=== PATIENT | male | born 1935 | race Caucasian/White ===

== ENCOUNTER 2018-08-03 19:06 | Emergency (ER) | payer MEDICARE ==
[~2018-08-03] VITALS: Ht 167.6 cm; Wt 70.0 kg
[2018-08-03 19:22] VITALS: BP 167/81
[2018-08-03] MEDS ORDERED: SODIUM CHLORIDE FLUSH 10ML SYR IVF ONE (19:30)
--- NOTE | 2018-08-03 19:30 | NUR ---
PT PLACED ON BP CUFF, PULSE OXSelin BRYAN AT BS. WARM BLANKET PROVIDED, CALL LIGHT WITHIN REACH.
[2018-08-03 19:40] LABS: ALBUMIN 3.9 g/dL (3.4-5.0); ANION GAP 6 mmol/L (5-15); CALCIUM 9.5 mg/dL (8.5-10.1); CHLORIDE 103 mmol/L (98-107); CREATININE 0.99 mg/dL (0.7-1.3)
[2018-08-03 19:42] LABS: BASOPHILS # (AUTO) 0.02 x10^3/uL (0-0.1); BASOPHILS % (AUTO) 0 % (0-1); EOSINOPHILS # (AUTO) 0.29 x10^3/uL (0-0.4); EOSINOPHILS % (AUTO) 6 % (1-7); LYMPHOCYTES # (AUTO) 1.36 x10^3/uL (1-3.4); LYMPHOCYTES % (AUTO) 27 % (22-44); MD NO; MEAN CORPUSCULAR HGB CONC 33.3 g/dL (33.2-36.2); MONOCYTES % (AUTO) 10 % (2-9); NEUTROPHILS % (AUTO) 56 % (42-75); PLATELET COUNT 185 x10^3/uL (130-400); RED BLOOD COUNT 4.44 x10^6/uL (4.38-5.82); RED CELL DISTRIBUTION WIDTH 14.8 % (9.4-14.8)
--- NOTE | 2018-08-03 20:14 | NUR ---
KENNEL ASSISTANT CALLING CENTRAL AND SURGERY TO OBTAIN ASPEN COLLAR.
--- NOTE | 2018-08-03 20:47 | NUR ---
CALL TO CENTRAL X 2, CENTRAL PAGED NEXT. PT AWAITING JIM Horton OR SIM ELIAS. DISCHARGE INSTRUCTS GIVEN TO PT AND FAMILY.
== END 2018-08-03 21:11 | disposition home or self-care (01) ==
LOC: ED 20:50
DX: S12.9XXA Fracture of neck, unspecified, initial encounter (principal); M54.12 Radiculopathy, cervical region; I10 Essential (primary) hypertension; E78.00 Pure hypercholesterolemia, unspecified; F03.90 Unspecified dementia, unspecified severity, without behavioral disturbance, psychotic disturbance, mood disturbance, and anxiety; X58.XXXA Exposure to other specified factors, initial encounter; Y93.89 Activity, other specified; Y92.89 Other specified places as the place of occurrence of the external cause; Y99.8 Other external cause status
CPT/HCPCS: 36415; 80048; 82040; 85025; 99283